=== PATIENT | female | born 1960 | race African-American/Black ===

== ENCOUNTER 2017-04-04 17:45 | Emergency (ER) | payer OTHER ==
[~2017-04-04] VITALS: Ht 162.6 cm; Wt 56.7 kg
[~2017-04-04 17:45] MED LIST: GUAIFENESIN400 MG PO; NKM; NORVASC10 MG ORAL; POLYTRIM EYE DR10 ML OP
[2017-04-04 18:09] VITALS: BP 165/87
[2017-04-04] MEDS ORDERED: ACETAMINOPHEN-1 EAC1 ORAL (18:18)
[2017-04-04] MEDS ORDERED: AUGMENTIN 875-1 EAC1 ORAL (18:18)
--- NOTE | 2017-04-04 18:18 | Emergency Room Report ---
History of Present Illness General Chief Complaint: Toothache Source: Patient Present Illness HPI 57 y/o female c/o tooth fracture x 2 days. States that she was eating a piece of candy with part of her premolar of the left lower jaw. States she feels her tongue rubbing against her tooth causing tongue pain. Worse with eating food and better with keeping tooth covered with a piece of plastic. Denies any other physical complaints. Currently not taking any medications. Allergies: Coded Allergies: No Known Allergies (Unverified , 09/26/12) Patient History Past Medical History: see triage record Past Surgical History: none Pertinent Family History: none Reviewed Nursing Documentation: PMH: Agreed, PSxH: Agreed Nursing Documentation-PMH Past Medical History: No History, Except For Hx Hypertension: Yes - borderline Review of Systems All Other Systems: negative except mentioned in HPI Physical Exam Vital Signs Date Time Temp Pulse Resp B/P Pulse Ox O2 Delivery O2 Flow Rate FiO2 04/04/17 17:55 99.1 54 16 178/94 100 Room Air Sp02 EP Interpretation: reviewed, normal General Appearance: no apparent distress, alert, GCS 15, non-toxic Head: normocephalic, atraumatic ENT: hearing grossly normal, normal pharynx, no angioedema, normal voice, other - Left premolar fracture with posterior aspect of left premolar tooth missing with presence of dentin. Poor dentition with abscence of teeth present along with dental caries. Neck: full range of motion, supple/symm/no masses Respiratory: chest non-tender, lungs clear, normal breath sounds, speaking full sentences Cardiovascular #1: regular rate, rhythm, no edema Neurologic: alert, oriented x3 Psychiatric: judgement/insight normal, memory normal, mood/affect normal, no suicidal/homicidal ideation Skin: normal color, no rash, warm/dry, well hydrated Lymphatic: no adenopathy Medical Decision Making PA Attestation Dr. Ozuna is my supervising physician with whom patient management has been discussed with. Diagnostic Impression: Primary Impression: See type II Additional Impression: Tooth fracture Qualified Codes: S02.5XXB - Fracture of tooth (traumatic), initial encounter for open fracture ER Course Pt. presents to the ED c/o tooth pain Ddx considered but are not limited to tooth fracture, chipped tooth, dental caries, dental infection, tooth abscess, tooth avulsion Vital signs: are WNL, pt. is afebrile H&PE are most consistent with see type ii tooth fracture ORDERS: none required at this time, the diagnosis is clinical ED INTERVENTIONS: none required at this time. DISCHARGE: At this time pt. is stable for d/c to home. Will provide printed patient care instructions, and any necessary prescriptions. Care plan and follow up instructions have been discussed with the patient prior to discharge. Last Vital Signs Date Time Temp Pulse Resp B/P Pulse Ox O2 Delivery O2 Flow Rate FiO2 04/04/17 18:09 99.1 82 16 165/87 100 Room Air Status: unchanged Disposition: HOME, SELF-CARE Condition: Stable Scripts Acetaminophen With Codeine (T#3) (TYLENOL #3 TAB*) Y Tab 1 TAB ORAL Q6HR Y for For Pain for 5 Days, #14 TAB Prov: MEAGAN IRVIN 04/04/17 Amoxicillin/Potassium Clav 875-125* (AUGMENTIN 875-125 TABLET*) 1 Each Tablet 1 TAB ORAL TWICE A DAY for 7 Days, #14 TAB Prov: MEAGAN IRVIN 04/04/17 Patient Instructions: Tooth Injuries, Dental Pain Additional Instructions: Keep mouth clean and rinse mouth out before and after each meal. Advised to use dental cement on tooth and to follow up with dentist within 24h. Take medication as directed. Patient should come back sooner if they experience any red areas that get bigger, more swollen, have pus draining from wound, or if the site becomes more painful. MEAGAN IRVIN April 04, 2017 18:18
[2017-04-04 18:24] VITALS: BP 165/87
== END 2017-04-04 18:24 | disposition home or self-care (01) ==
LOC: EMR 18:11
DX: S02.5XXB Fracture of tooth (traumatic), initial encounter for open fracture (principal); X58.XXXA Exposure to other specified factors, initial encounter; Y93.9 Activity, unspecified; Y92.9 Unspecified place or not applicable; I10 Essential (primary) hypertension
CPT/HCPCS: 99284

== ENCOUNTER 2019-07-31 15:32 | Emergency (ER) | payer MEDICAID, OTHER ==
[~2019-07-31] VITALS: Ht 162.6 cm; Wt 49.4 kg
[~2019-07-31 15:32] MED LIST changes: +ACETAMINOPHEN-1 EAC1 ORAL; +AUGMENTIN 875-1 EAC1 ORAL
[2019-07-31 15:35] VITALS: BP 148/94
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
[2019-07-31] MEDS ORDERED: NAPROXEN500 M2 ORAL (15:57)
[2019-07-31] MEDS ORDERED: Naproxen 500mg tab ORAL ONE (16:00)
[2019-07-31 16:06] VITALS: BP 142/90
--- NOTE | 2019-07-31 16:06 | NUR ---
ER DISCHARGE NOTE: Patient is cleared to be discharged per PA, pt is aox4, on room air, with stable vital signs. pt was given dc and prescription instructions, pt was able to verbalize understanding, pt id band removed. pt is able to ambulate with steady gait. pt took all belongings.
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
== END 2019-07-31 16:16 | disposition home or self-care (01) ==
LOC: EMR 16:11
DX: R10.30 Lower abdominal pain, unspecified (principal); Y04.8XXA Assault by other bodily force, initial encounter; Y92.9 Unspecified place or not applicable
CPT/HCPCS: 99282